=== PATIENT | male | born 2005 ===

== ENCOUNTER 2024-07-10 22:21 | Emergency (ER) | payer OTHER, BC ==
[2024-07-10 22:40] LABS: BASOPHILS PERCENT AUTO 0.1 % (0.2-1.2); EOSINOPHILS ABSOLUTE AUTO 0.2 x10^3/uL (0.0-0.5); EOSINOPHILS PERCENT AUTO 1.9 % (0.0-4.0); HEMATOCRIT 41.9 % (40.0-52.0); HEMOGLOBIN 14.8 g/dL (14.0-18.0); IMMATURE GRAN ABSOLUTE AUTO 0.12 x10^3/uL (0.00-0.07); LYMPHOCYTES ABSOLUTE AUTO 2.6 x10^3/uL (1.0-4.8); LYMPHOCYTES PERCENT AUTO 20.8 % (25.0-50.0); MEAN CORPUSCULAR HEMOGLOBIN 31.2 pg (26.0-32.0); MEAN CORPUSCULAR HGB CONC 35.3 g/dL (32.0-36.0); MEAN CORPUSCULAR VOLUME 88.2 fL (78.0-93.0); MONOCYTES ABSOLUTE AUTO 0.7 x10^3/uL (0.0-0.8); MONOCYTES PERCENT AUTO 5.8 % (2.0-11.0); NEUTROPHILS ABSOLUTE AUTO 8.8 x10^3/uL (1.8-7.7); NEUTROPHILS PERCENT AUTO 70.4 % (50.0-80.0); PLATELET COUNT,PLT 176 x10^3/uL (130-400); RED BLOOD CELL COUNT 4.75 x10^6/uL (4.5-6.0); WHITE BLOOD CELL COUNT,WBC 12.4 x10^3/uL (4.0-10.0)
[2024-07-10] MEDS ORDERED: HYDROmorphone 1 MG/ML Syringe IVPUSH ONE ×2 (22:44→23:29)
[2024-07-10 22:57] LABS: A/G RATIO 1.13; ALANINE AMINOTRANSFERASE,ALT 41 U/L (16-63); ALBUMIN 3.4 g/dL (3.4-5.0); ALKALINE PHOSPHATASE 120 U/L (46-116); ASPARTATE AMNIOTRANSFERASE,AST 35 U/L (15-37); BILIRUBIN TOTAL 0.5 mg/dL (0.2-1.0); BLOOD UREA NITROGEN,BUN 20 mg/dL (7-18); CALCIUM 8.7 mg/dL (8.5-10.1); CARBON DIOXIDE,CO2 27 mmol/L (21-32); CHLORIDE,CL 105 mmol/L (98-107); GLUCOSE RANDOM 112 mg/dL (70-99); POTASSIUM,K 3.7 mmol/L (3.5-5.1); PROTEIN TOTAL,TP 6.4 g/dL (6.4-8.2); SODIUM,NA 140 mmol/L (136-145)
[2024-07-10 22:58] LABS: ANION GAP 11.7 mmol/L (5-15); ESTIMATED GFR 110 mL/min (>=60)
[2024-07-10 22:59] LABS: ETHANOL BLOOD MEDICAL < 3 mg/dL (0-3)
[2024-07-10 23:04] LABS: INR 1.1 (0.9-1.1); PROTHROMBIN TIME 10.9 SEC (8.9-11.5); PTT,PARTIAL THROMBOPLSTIN TIME 20.7 SEC (21.9-33.8)
[2024-07-10] MEDS: Iopamidol 612 MG/ML 100 ML Bottle IVPUSH ONE (23:53)
== END 2024-07-11 01:10 | disposition short-term general hospital (02) ==
LOC: VM.ED 22:21
DX: S27.322A Contusion of lung, bilateral, initial encounter (principal); V89.2XXA Person injured in unspecified motor-vehicle accident, traffic, initial encounter
CPT/HCPCS: 36415; 70450; 70486; 71045; 71260; 72125; 74177; 80053; 80307; 85025; 85610; 85730; 96374; 96376; 99284; 99285-25; J1171; Q9967